=== PATIENT | male | born 1940 | race Two or more races ===

== ENCOUNTER 2023-05-27 21:58 | Inpatient (IN) | payer OTHER, MEDICAID ==
[~2023-05-27] VITALS: Ht 170.2 cm; Wt 68.0 kg
[2023-05-27 23:24] VITALS: BP 158/94; PULSE 70; RESP 18; TEMP 97.9; O2SAT 96
[2023-05-28] MEDS ORDERED: CYCL-611 PO (00:05)
[2023-05-28] MEDS ORDERED: TAMS0.4C36 PO (00:05)
[2023-05-28] MEDS ORDERED: ALPR1TAB7 PO (00:06)
[2023-05-28] MEDS ORDERED: SENN-58 PO (00:06)
[2023-05-28] MEDS ORDERED: OXY10CRT PO (00:08)
[2023-05-28] MEDS ORDERED: MORPHINE SULFATE INJ 2 MG/ml SYRG IV PRN (00:45)
[2023-05-28] MEDS ORDERED: NITROGLYCERIN 0.4 MG SL TAB SL PRN (00:45)
[2023-05-28] MEDS ORDERED: DOCUSATE SOD 100 MG CAP PO PRN (00:45)
[2023-05-28] MEDS ORDERED: ONDANSETRON HCL 4 MG/2 ML VIAL IV PRN (00:45)
[2023-05-28] MEDS ORDERED: ACETAMINOPHEN 325 MG TAB PO PRN (00:45)
[2023-05-28] MEDS ORDERED: LORazepam 0.5 MG TAB PO PRN (00:45)
[2023-05-28] MEDS: SOD CHL 0.45% 1,000 ML IV SCH ×2 (01:12→14:05)
[2023-05-28] MEDS: MORPHINE SULFATE INJ 2 MG/ml SYRG IV PRN ×2 (01:12→06:17)
[2023-05-28 05:00] VITALS: BP 140/83; PULSE 60; RESP 17; TEMP 98.4; O2SAT 96
[2023-05-28 05:46] LABS: Basophils # (auto) 0 10 ^3/uL (0-0.2); Basophils % (auto) 0.2 % (0.0-2.0); Eosinophils # (auto) 0 10 ^3/uL (0-0.8); Eosinophils % (auto) 0.1 % (0.0-7.0); Hematocrit 36.7 % (41.0-53.0); Hemoglobin 11.9 g/dL (13.5-17.5); Lymphocytes % (auto) 29.6 % (10.0-50.0); Mean Corpuscular Hemoglobin 29.4 pg (28.0-32.0); Mean Corpuscular Hgb Conc. 32.4 g/dL (32.0-36.0); Mean Corpuscular Volume 90.8 fL (80.0-100.0); Monocytes % (auto) 14.6 % (0.0-12.0); Neutrophils # (auto) 3.8 10 ^3/uL (1.6-8.6); Neutrophils % (auto) 55.5 % (37.0-80.0); Nucleated Red Blood Cells % 0.2 %; Red Blood Cells 4.04 10^6/uL (4.5-5.90); Red Cell Distribution Width 16.4 % (11.8-14.3); White Blood Cell 6.8 10^3/uL (4.4-10.8)
[2023-05-28 06:00] LABS: Chloride 108 mmol/L (98-107); Potassium 3.9 mmol/L (3.5-5.1); Sodium 141 mmol/L (136-145)
[2023-05-28 06:02] LABS: Calcium 8.4 mg/dL (8.5-10.1)
[2023-05-28 06:06] LABS: BUN/Creatinine Ratio 15.6 (10.0-20.0); Blood Urea Nitrogen 32 mg/dL (9-23); Glucose 91 mg/dL (74-106)
[2023-05-28 06:23] LABS: Anion Gap 8 (5-15); Carbon Dioxide 25 mmol/L (20-30)
[2023-05-28] MEDS ORDERED: PANTOPRAZOLE 40 MG/10 ML VIAL INJ IV SCH (10:00)
[2023-05-28 10:31] LABS: Magnesium 2.2 mg/dL (1.6-2.6)
[2023-05-28 10:33] LABS: Phosphorus 4.4 mg/dL (2.4-5.1)
[2023-05-28 17:00] VITALS: BP 152/85; PULSE 86; RESP 18; TEMP 98.3; O2SAT 95
[2023-05-28 22:00] VITALS: BP 160/93; PULSE 84; RESP 16; TEMP 98.5; O2SAT 95
[2023-05-29] MEDS: SOD CHL 0.45% 1,000 ML IV SCH ×2 (03:25→16:45)
[2023-05-29 05:00] VITALS: BP 148/81; PULSE 73; RESP 16; TEMP 99.1; O2SAT 93
[2023-05-29 06:45] LABS: Chloride 105 mmol/L (98-107); Potassium 3.6 mmol/L (3.5-5.1); Sodium 137 mmol/L (136-145)
[2023-05-29 06:46] LABS: Anion Gap 9 (5-15); Calcium 8.3 mg/dL (8.5-10.1); Carbon Dioxide 23 mmol/L (20-30)
[2023-05-29 06:47] LABS: Basophils # (auto) 0 10 ^3/uL (0-0.2); Basophils % (auto) 0.2 % (0.0-2.0); Eosinophils # (auto) 0 10 ^3/uL (0-0.8); Hematocrit 37.6 % (41.0-53.0); Hemoglobin 12.3 g/dL (13.5-17.5); Lymphocytes # (auto) 0.8 10 ^3/uL (0.4-5.4); Lymphocytes % (auto) 17.9 % (10.0-50.0); Mean Corpuscular Hemoglobin 29.3 pg (28.0-32.0); Mean Corpuscular Hgb Conc. 32.8 g/dL (32.0-36.0); Mean Corpuscular Volume 89.2 fL (80.0-100.0); Monocytes # (auto) 0.5 10 ^3/uL (0-1.3); Neutrophils # (auto) 3.1 10 ^3/uL (1.6-8.6); Neutrophils % (auto) 69.9 % (37.0-80.0); Red Blood Cells 4.21 10^6/uL (4.5-5.90); Red Cell Distribution Width 16.2 % (11.8-14.3); White Blood Cell 4.4 10^3/uL (4.4-10.8)
[2023-05-29 06:51] LABS: Blood Urea Nitrogen 28 mg/dL (9-23); Glucose 93 mg/dL (74-106)
[2023-05-29 08:30] VITALS: BP 149/82; PULSE 76; RESP 18; TEMP 98.8; O2SAT 96
[2023-05-29] MEDS ORDERED: POTASSIUM EFFERVESENT TAB 25 MEQ PO ONE (10:30)
[2023-05-29] MEDS: MORPHINE SULFATE INJ 2 MG/ml SYRG IV PRN (10:41)
[2023-05-29] MEDS: amLODIPine BESYLATE 5 MG TAB PO SCH (10:41)
[2023-05-29 11:30] LABS: Protein, Urine 73.6 mg/dL (0.0-11.9)
[2023-05-29 11:32] LABS: Creatinine, Urine 141.76 mg/dL (30.0-125.0); Urine Bacteria FEW /hpf (None Seen); Urine Blood 2+ /uL (Negative); Urine Clarity HAZY (Clear); Urine Color Yellow (Yellow); Urine Mucus FEW (None Seen); Urine Protein, UAD 1+ (Negative); Urine Protein/Creatinine Ratio 0.52; Urine Specific Gravity 1.021 (1.001-1.035); Urine Urobilinogen Normal (Negative); Urine WBC 52 /hpf (0 - 3); Urine pH 5.5 (5.0-8.0)
[2023-05-29 12:25] VITALS: BP 140/74; PULSE 63; RESP 18; TEMP 98.2; O2SAT 95
[2023-05-29 16:30] VITALS: BP 131/73; PULSE 68; RESP 18; TEMP 98.2; O2SAT 93
[2023-05-29 22:00] VITALS: BP 146/79; PULSE 72; RESP 18; TEMP 98.2; O2SAT 94
[2023-05-30] MEDS: HYDROcodone-ACET 5/325MG TAB PO PRN (01:15)
[2023-05-30 05:00] VITALS: BP 145/76; PULSE 74; RESP 20; TEMP 97.5; O2SAT 93
[2023-05-30 05:43] LABS: Basophils # (auto) 0 10 ^3/uL (0-0.2); Basophils % (auto) 0.3 % (0.0-2.0); Chloride 105 mmol/L (98-107); Eosinophils # (auto) 0 10 ^3/uL (0-0.8); Eosinophils % (auto) 0.1 % (0.0-7.0); Hematocrit 40.8 % (41.0-53.0); Hemoglobin 13.4 g/dL (13.5-17.5); Lymphocytes # (auto) 1.4 10 ^3/uL (0.4-5.4); Lymphocytes % (auto) 30.6 % (10.0-50.0); Mean Corpuscular Hemoglobin 29.4 pg (28.0-32.0); Mean Corpuscular Hgb Conc. 32.9 g/dL (32.0-36.0); Mean Corpuscular Volume 89.5 fL (80.0-100.0); Monocytes # (auto) 0.5 10 ^3/uL (0-1.3); Monocytes % (auto) 11.2 % (0.0-12.0); Neutrophils # (auto) 2.7 10 ^3/uL (1.6-8.6); Neutrophils % (auto) 57.8 % (37.0-80.0); Nucleated Red Blood Cells % 0.3 %; Potassium 4.4 mmol/L (3.5-5.1); Red Blood Cells 4.56 10^6/uL (4.5-5.90); Sodium 136 mmol/L (136-145); White Blood Cell 4.6 10^3/uL (4.4-10.8)
[2023-05-30 05:44] LABS: Anion Gap 6 (5-15); Calcium 8.5 mg/dL (8.7-10.4); Carbon Dioxide 25 mmol/L (20-30)
[2023-05-30 05:49] LABS: BUN/Creatinine Ratio 22.5 (10.0-20.0); Blood Urea Nitrogen 27 mg/dL (9-23); Glucose 97 mg/dL (74-106)
[2023-05-30 09:00] VITALS: BP 157/82; PULSE 62; RESP 16; TEMP 97.3; O2SAT 96
[2023-05-30] MEDS: amLODIPine BESYLATE 5 MG TAB PO SCH (11:03)
[2023-05-30 13:00] VITALS: BP 145/77; PULSE 63; RESP 17; TEMP 97.3; O2SAT 96
[2023-05-30] MEDS ORDERED: AML5T PO (14:07)
[2023-05-30 17:00] VITALS: BP 149/80; PULSE 81; RESP 18; TEMP 98.3; O2SAT 91
[2023-05-30] MEDS ORDERED: ENOXAPARIN SOD 40 MG/0.4 ML SYRINGE SC ONE (18:30)
[2023-05-30 22:00] VITALS: BP 150/79; PULSE 74; RESP 18; TEMP 97.7; O2SAT 94
[2023-05-31 05:00] VITALS: BP 156/83; PULSE 79; RESP 18; TEMP 98.3; O2SAT 91
[2023-05-31 06:55] LABS: Anion Gap 6 (5-15); Carbon Dioxide 26 mmol/L (20-30); Chloride 105 mmol/L (98-107); Potassium 5.3 mmol/L (3.5-5.1); Sodium 137 mmol/L (136-145)
[2023-05-31 06:56] LABS: Basophils # (auto) 0 10 ^3/uL (0-0.2); Basophils % (auto) 0.3 % (0.0-2.0); Eosinophils # (auto) 0 10 ^3/uL (0-0.8); Hematocrit 40.4 % (41.0-53.0); Hemoglobin 13.2 g/dL (13.5-17.5); Lymphocytes # (auto) 0.9 10 ^3/uL (0.4-5.4); Lymphocytes % (auto) 21.6 % (10.0-50.0); Mean Corpuscular Hemoglobin 29.1 pg (28.0-32.0); Mean Corpuscular Hgb Conc. 32.6 g/dL (32.0-36.0); Mean Corpuscular Volume 89.1 fL (80.0-100.0); Monocytes # (auto) 0.4 10 ^3/uL (0-1.3); Monocytes % (auto) 9.8 % (0.0-12.0); Neutrophils # (auto) 2.9 10 ^3/uL (1.6-8.6); Neutrophils % (auto) 68.3 % (37.0-80.0); Nucleated Red Blood Cells % 0.1 %; Red Blood Cells 4.53 10^6/uL (4.5-5.90); Red Cell Distribution Width 16.3 % (11.8-14.3); White Blood Cell 4.3 10^3/uL (4.4-10.8)
[2023-05-31 06:57] LABS: Calcium 8.8 mg/dL (8.5-10.1)
[2023-05-31 07:01] LABS: BUN/Creatinine Ratio 23.8 (10.0-20.0); Blood Urea Nitrogen 25 mg/dL (9-23); Glucose 105 mg/dL (74-106)
[2023-05-31 08:15] VITALS: BP 152/77; PULSE 71; RESP 20; TEMP 98.2
[2023-05-31] MEDS: MORPHINE SULFATE INJ 2 MG/ml SYRG IV PRN (08:38)
[2023-05-31 08:40] VITALS: BP 152/77; PULSE 71; RESP 20; TEMP 98.2; O2SAT 93
[2023-05-31] MEDS: amLODIPine BESYLATE 5 MG TAB PO SCH (09:59)
[2023-05-31] MEDS ORDERED: ENOXAPARIN SOD 40 MG/0.4 ML SYRINGE SC SCH (10:00)
[2023-05-31 12:51] VITALS: BP 153/75; PULSE 66; RESP 18; TEMP 98.9; O2SAT 93
[2023-05-31 13:00] VITALS: BP 140/78; PULSE 71; RESP 20; TEMP 98.2; O2SAT 93
[2023-05-31] MEDS: HYDROcodone-ACET 5/325MG TAB PO PRN (14:36)
[2023-05-31 17:00] VITALS: BP 125/77; PULSE 72; RESP 18; TEMP 97.9; O2SAT 94
== END 2023-05-31 23:06 | DRG 725 ==
LOC: TELE-CENTR 23:13 → CENTRAL 05-28 00:06
PROVIDERS: ADMIT Nurse Practitioner Family; ATTEND Nurse Practitioner Family
DX: N40.0 Benign prostatic hyperplasia without lower urinary tract symptoms (principal); N17.0 Acute kidney failure with tubular necrosis; N13.8 Other obstructive and reflux uropathy; N21.0 Calculus in bladder; D63.1 Anemia in chronic kidney disease; M17.0 Bilateral primary osteoarthritis of knee; N32.0 Bladder-neck obstruction; Z80.1 Family history of malignant neoplasm of trachea, bronchus and lung; R33.8 Other retention of urine; I12.9 Hypertensive chronic kidney disease with stage 1 through stage 4 chronic kidney disease, or unspecified chronic kidney disease; Z60.2 Problems related to living alone; N18.2 Chronic kidney disease, stage 2 (mild)
CPT/HCPCS: 36415; 76775; 80048; 81001; 82306; 82570; 83735; 83970; 84100; 84156; 84300; 85025; 87081; 97110; 97163; 97530; C9113; G0378